=== PATIENT | male | born 1990 | race African-American/Black ===

== ENCOUNTER 2024-01-07 16:49 | Emergency (ER) | payer MEDICAID ==
[~2024-01-07] VITALS: Ht 185.4 cm; Wt 72.6 kg
[2024-01-07 16:50] VITALS: O2SAT 100
[2024-01-07] MEDS: IBUPROFEN 400MG TABLET PO ONE (18:14)
[2024-01-07] MEDS: BACITRACIN ZINC OINT UDPKT TOP ONE (18:14)
[2024-01-07] MEDS ORDERED: IBUP-2028 MT (18:49)
[2024-01-07 19:07] VITALS: BP 113/70; PULSE 64; RESP 18; TEMP 98.5
== END 2024-01-07 20:07 | disposition home or self-care (01) ==
LOC: ER 16:53
DX: S90.811A Abrasion, right foot, initial encounter (principal); M79.671 Pain in right foot; X58.XXXA Exposure to other specified factors, initial encounter; Y93.89 Activity, other specified; Y92.89 Other specified places as the place of occurrence of the external cause; Y99.8 Other external cause status
CPT/HCPCS: 73610; 73630; 99284; Z7610

== ENCOUNTER 2024-02-15 07:46 | Emergency (ER) | payer MEDICAID ==
[~2024-02-15] VITALS: Ht 175.3 cm; Wt 68.0 kg
[~2024-02-15 07:46] MED LIST: IBUP-2028 MT
[2024-02-15 07:51] VITALS: O2SAT 97
[2024-02-15] MEDS: ACETAMINOPHEN 325MG TABLET PO STA (08:33)
[2024-02-15 09:55] LABS: BASOPHILS % 0.4 % (0.0-2.0); EOSINOPHILS % 0.3 % (0.0-5.0); HEMATOCRIT. 37.6 % (42.0-52.0); HEMOGLOBIN. 12.8 g/dL (14.0-18.0); LYMPHOCYTES % 7.3 % (20.0-50.0); MEAN CORPUSCULAR HEMOGLOBIN 31.5 pg (28.0-32.0); MEAN CORPUSCULAR HGB CONC 34.2 g/dL (31.0-37.0); MEAN CORPUSCULAR VOLUME 92.1 fL (80.0-94.0); MONOCYTES % 6.9 % (2.0-8.0); NEUTROPHILS % 85.1 % (40.0-76.0); PLATELET 307 x1000/uL (130-400); RED BLOOD CELL COUNT 4.08 mill/uL (4.7-6.1); RED CELL DISTRIBUTION WIDTH 13.5 % (11.6-14.6); WHITE BLOOD COUNT 13.7 x1000/uL (4.5-11.0)
[2024-02-15 10:01] LABS: CHLORIDE 100 mEq/L (98-107); SODIUM 133 mEq/L (136-145)
[2024-02-15 10:02] LABS: CARBON DIOXIDE 26 mEq/L (21-32)
[2024-02-15 10:07] LABS: CREATININE 0.8 mg/dL (0.6-1.3); GLUCOSE 123 mg/dL (70-105)
[2024-02-15 10:08] LABS: UREA NITROGEN BLOOD 7 mg/dL (9-23)
[2024-02-15] MEDS ORDERED: AZIT250T12 MT (10:16)
[2024-02-15] MEDS ORDERED: ALBU18HF2 IH (10:16)
[2024-02-15] MEDS ORDERED: NAPR-681 PO (10:16)
[2024-02-15] MEDS ORDERED: AMOX1TAB16 MT (10:16)
[2024-02-15] MEDS: CEFTRIAXONE SODIUM 1G VIAL IM NR (10:21)
[2024-02-15] MEDS: LIDOCAINE HCL 1% 20ML VIAL (Pyxis) INJ INFIL NR (10:22)
[2024-02-15 10:50] VITALS: BP 121/76; PULSE 84; RESP 17; TEMP 98.5
== END 2024-02-15 10:50 | disposition home or self-care (01) ==
LOC: ER 07:46
DX: J18.8 Other pneumonia, unspecified organism (principal); J45.909 Unspecified asthma, uncomplicated; Z20.822 Contact with and (suspected) exposure to COVID-19
CPT/HCPCS: 36415; 71045; 80048; 85025; 87426; 87804; 99284

== ENCOUNTER 2024-02-20 13:58 | Emergency (ER) | payer MEDICAID ==
[~2024-02-20] VITALS: Ht 177.8 cm; Wt 81.0 kg
[~2024-02-20 13:58] MED LIST changes: +ALBU18HF2 IH; +AMOX1TAB16 MT; +AZIT250T12 MT; +NAPR-681 PO
[2024-02-20 14:03] VITALS: TEMP 97.1
[2024-02-20] MEDS: PREDNISONE 20MG TABLET PO ONE (14:30)
[2024-02-20 15:18] VITALS: PULSE 85; RESP 16; O2SAT 98
[2024-02-20] MEDS: IPRATROPIUM/ALBUTEROL 0.5-3(2.5)MG/3ML NEB HHN ONE (15:18)
[2024-02-20] MEDS ORDERED: HYDR-4001 MT (16:35)
[2024-02-20] MEDS: HYDROCODONE/ACETAMINOPHEN 5/325MG TABLET PO ONE (16:47)
[2024-02-20] MEDS: ONDANSETRON 4MG ODT PO ONE (16:47)
[2024-02-20 16:52] VITALS: BP 144/70; PULSE 70; RESP 18
== END 2024-02-20 16:52 | disposition home or self-care (01) ==
LOC: ER 13:58
DX: R07.89 Other chest pain (principal); R06.02 Shortness of breath
CPT/HCPCS: 71045; 94640; 99283; Q0162; J7512; Z7610 ×3

== ENCOUNTER 2025-06-02 12:21 | Emergency (ER) | payer MEDICAID ==
[~2025-06-02] VITALS: Ht 177.8 cm; Wt 77.0 kg
[~2025-06-02 12:21] MED LIST changes: +HYDR-4001 MT
[2025-06-02 12:23] VITALS: O2SAT 99
[2025-06-02] MEDS: IBUPROFEN 400MG TABLET PO ONE (13:38)
[2025-06-02] MEDS ORDERED: TOPUD MT (14:59)
[2025-06-02 15:29] VITALS: BP 110/60; PULSE 90; RESP 16; TEMP 36.7; O2SAT 99
== END 2025-06-02 15:58 | disposition home or self-care (01) ==
LOC: ER 12:21
DX: M25.551 Pain in right hip (principal); J45.909 Unspecified asthma, uncomplicated; Z79.899 Other long term (current) drug therapy
CPT/HCPCS: 73502; 99283